=== PATIENT | male | born 1985 | race Caucasian/White ===

== ENCOUNTER 2019-03-14 09:13 | Emergency (ER) | payer MEDICAID ==
[~2019-03-14] VITALS: Ht 182.9 cm; Wt 90.7 kg
--- NOTE | 2019-03-14 09:16 | NUR ---
Patient ambulated to bed 5 with family. RN evaluating patient at bedside.
[2019-03-14 09:18] VITALS: BP 129/96
--- NOTE | 2019-03-14 09:32 | NUR ---
C/O REPEATED EMESIS X 5 DAYS WITH TREMORS---ADMITS LAST ETOH CONSUMPTION WAS YESTERDAY; DAILY ETOH ABUSE, TRYING TO QUIT. AMBULATORY WITH STEADY GAIT, DENIES VISUAL /AUDITORY HALLUCINATIONS/ SKIN DRY NO ABD PAIN AT THIS TIME BUT STATES DOES EXPERIENCE ABD PAIN INTERMITTENTLY. STATES MILD ACHE TO BOTH LEGS AT THIS TIME. STATES VOMITED "40 TIMES YESTERDAY AND BLOOD IN EMESIS FOR 5 OF THOSE TIMES". PT IS RESTLESS IN BED; BEDRAILS UP X2; AT BEDSIDE; ERMD TO EVALUATE. HX--DEPRESSION, SCHIZOPHRENIA, ANXIETY, ETOH ABUSE RX--ZOLOFT, ABILIFY, VISTARIL (NON COMPLIANT)
--- NOTE | 2019-03-14 10:19 | NUR ---
Dr. Rosales is evaluating the patient at bedside.
--- NOTE | 2019-03-14 10:26 | NUR ---
DR. LOCK EVALUATING PT AT BEDSIDE.
[2019-03-14] MEDS ORDERED: MULTIVITAMIN-12 10 ML, THIAMINE 100 MG, MAGNESIUM SULFATE 50% 2,000 MG, FOLIC ACID 1 MG... IV STA ×5 (10:36)
[2019-03-14] MEDS ORDERED: LORazepam 2 MG/ML VIAL IVP ONE (10:40)
[2019-03-14] MEDS ORDERED: ONDANSETRON 4 MG/2 ML VIAL IVP ONE ×2 (10:40→15:20)
--- NOTE | 2019-03-14 10:43 | NUR ---
ASKED PHARMACY TO BRING BANANA BAG
[2019-03-14 11:17] LABS: BASOPHILS % (AUTO) 0.7 % (0.0-2.0); HEMATOCRIT 47.3 % (36-52); HEMOGLOBIN 15.7 g/dL (12.0-18.0); LYMPHOCYTES # (AUTO) 1.8 K/uL (2.0-11.5); LYMPHOCYTES % (AUTO) 30.5 % (20.5-51.1); MEAN CORPUSCULAR HEMOGLOBIN 28 pg (27-31); MEAN CORPUSCULAR HGB CONC 33 g/dL (33-37); MEAN CORPUSCULAR VOLUME 83.4 fL (80-94); MONOCYTES # (AUTO) 0.4 K/uL (0.8-1.0); MONOCYTES % (AUTO) 6.7 % (1.7-9.3); NEUTROPHILS # (AUTO) 3.6 K/uL (1.8-7.7); NEUTROPHILS % (AUTO) 62.1 % (42.2-75.2); PLATELET COUNT (AUTO) 276 K/uL (140-450); RED BLOOD CELL COUNT(AUTO) 5.68 MIL/uL (4.20-6.10); RED CELL DISTRIBUTION WIDTH 16.2 % (11.6-13.7); WHITE BLOOD COUNT (AUTO) 5.9 K/uL (4.8-10.8)
[2019-03-14 11:28] LABS: CARBON DIOXIDE 23.8 mmol/L (21-32); CREATININE 0.9 mg/dL (0.7-1.3); POTASSIUM 3.8 mmol/L (3.5-5.1)
[2019-03-14 11:33] LABS: ALBUMIN 4.2 g/dL (3.4-5.0); TOTAL BILIRUBIN 0.3 mg/dL (0.0-1.0)
--- NOTE | 2019-03-14 12:23 | NUR ---
PT SLEEPING IN BED, AROUSABLE BY VOICE, VITALS STABLE ON BEDSIDE MONITOR, RESPIRATIONS EVEN AND UNLABORED. PT STATES STILL UNABLE TO PROVIDE URINE SAMPLE AT THIS TIME BUT VERBALIZED UNDERSTANDING. Addendum: 03/14/19 at 1458 by TAVO NO TREMORS NOTED
--- NOTE | 2019-03-14 13:46 | NUR ---
PER DR. LOCK, INCREASE RATE TO INFUSE THE REMAINING 510ML OF BANANA BAG OVER 1 HOUR. RATE= 481 ML/HR.
--- NOTE | 2019-03-14 13:47 | NUR ---
NOTIFIED DR. LOCK PT HAS STATED UNABLE TO PROVIDE URINE SAMPLE. PER DR. LOCK, OKAY TO NOT COLLECT URINE SAMPLE.
--- NOTE | 2019-03-14 14:57 | NUR ---
NOTIFIED DR. LOCK BANANA BAG IS DONE INFUSING
[2019-03-14 15:32] VITALS: BP 124/89
--- NOTE | 2019-03-14 15:32 | NUR ---
Patient discharged with v/s stable. Written and verbal after care instructions given and explained. Patient alert, oriented and verbalized understanding of instructions. Ambulatory with steady gait. All questions addressed prior to discharge. ID band removed. Patient advised to follow up with PMD. Rx of RASTA KYLE given. Patient educated on indication of medication including possible reaction and side effects. Opportunity to ask questions provided and answered.
== END 2019-03-14 15:32 | disposition home or self-care (01) ==
LOC: MED 09:13
DX: F10.129 Alcohol abuse with intoxication, unspecified (principal); Y90.9 Presence of alcohol in blood, level not specified; K29.70 Gastritis, unspecified, without bleeding; R11.2 Nausea with vomiting, unspecified; F41.9 Anxiety disorder, unspecified
CPT/HCPCS: 36415; 80053; 82150; 83690; 85025; 96365; 96366; 96375; 96376; 99284; A9153; G0482; J2060; J2405; J3411; J3475; J3490; J7030